=== PATIENT | female | born 1940 | race Caucasian/White ===

== ENCOUNTER 2021-02-22 10:12 | Inpatient (IN) ==
[2021-02-22] MEDS ORDERED: SODIUM CHLORIDE 0.9% 1000ML 1,000 ML IV ONE (11:18)
--- NOTE | 2021-02-22 11:24 | XRay Report ---
SINGLE VIEW CHEST CLINICAL HISTORY: Dyspnea. FINDINGS: An AP, portable, upright chest radiograph is obtained. No prior studies are available for c omparison at the time of dictation. The cardiomediastinal silhouette is unremarkable. Nonspecific in terstitial thickening is likely chronic. There is bibasilar scarring/atelectasis. No airspace consoli dation or large pleural effusion is identified. No pneumothorax is seen. The skeletal structures are osteopenic. There are healed left-sided rib fractures. IMPRESSION: No acute cardiopulmonary abnormality. ACT 112: Negative or not required by law. Electronically signed by: Srikanth Mistry M.D. 02/22/2021 11:23 AM
--- NOTE | 2021-02-22 11:37 | Emergency Department Note ---
Impression & Plan 2019 novel coronavirus-infected pneumonia (NCIP), SOB (shortness of breath), Weakness, Elevated troponin I level, Hypokalemia ED Provider Note NAME: DARY GODWIN AGE: 80 SEX: F : 1940 ARRIVES VIA: Walk-In INFORMANT: Patient, ED PROVIDER(S): Pramod Almaguer DO CHIEF COMPLAINT: Weakness HPI: The patient is a 80-year-old female who presented to the emergency department for an evaluation of generalized weakness. The patient states that she did having cough and generalized weakness over the course the last few weeks . She started having symptoms of COVID-19 infection on the of this month. She was then tested by her primary care physician on the that was positive for COVID-19. She states she called her doctor because of ongoing cough and weakness and was started on a Z-Vaibhav. She states her symptoms are not significantly improved. She denies having any chest pain. She denies having any lower extremity swelling. She has been trying [id number] medication without relief. She does note subjective fever as well. The patient is not vaccinated against COVID-19 ROS: See above HPI for pertinent positives & negatives. A total of 10 systems reviewed and were otherwise negative. PAST MEDICAL HISTORY: See Below PAST SURGICAL HISTORY: See Below FAMILY HISTORY: See Below SOCIAL HISTORY: See Below HOME MEDICATIONS: See Below ALLERGIES: See Below VITALS: See Below PHYSICAL EXAMINATION: GENERAL: Patient is awake alert in no acute distress patient is resting comfor tably and showing no signs of anxiety EYES: The conjunctivae are clear. The pupils are round and reactive. EARS, NOSE, MOUTH AND THROAT: The nose is without any evidence of any deformity. NECK: The neck is nontender and supple. RESPIRATORY: Diminished breath sounds are noted throughout. Faint crackles were noted in both lower lung mensah. There is no tachypnea or conversational dyspnea. CARDIOVASCULAR: Regular rate and rhythm noted there no murmurs rubs or gallops normal S1 normal S2. GASTROINTESTINAL: The abdomen is soft. Abdomen is nontender. MUSCULOSKELETAL/EXTREMITIES: There is no evidence of gross deformity full range of motion is noted in the hips and shoulders. SKIN: There is no obvious evidence of any rash. There are no petechiae, pallor or cyanosis noted. NEUROLOGIC: Patient is awake alert and oriented x3 strength is symmetric patellar reflexes are 2+ bilaterally MEDICAL DECISION MAKING: The patient is a 80-year-old female who presented to the emergency department for an evaluation of generalized weakness. The patient was diagnosed with COVID-19 recently. She continues to worsen with her symptoms especially weakness difficulty breathing. I discussed patient's laboratory and radiographic studies with her. She was found to have an elevation in her troponin. I discussed her case with the on-call [facility]. They have agreed to evaluate the patient in the emergency department but they did request a CT of the chest given the patient's elevated troponin and difficulty breathing. Triage Nursing notes reviewed. Prior medical records reviewed Vital Signs: reviewed and remarkable for elevated blood pressure Differential diagnosis: Infection, dehydration, metabolic abnormality, hypo/hyperglycemia, electrolyte disturbance, anemia, hypoxia, cardiac sources, intracerebral event, toxicologic, neurologic, as well as other pathologies. ER treatment provided: See below Diagnostics interpreted by me: ECG: EKG was obtained in the emergency department. My interpretation is normal sinus rhythm at 89 bpm. There is no ectopy. There was no acute ST segment abnormalities noted. Poor R wave progression was noted. This was compared to a tracing from May 082003. No significant changes were noted. Cardiac Monitoring: An order was placed for continuous cardiac monitoring. The monitor shows a rate of 90 bpm with sinus rhythm. Laboratory studies: As stated above and show below. Imaging studies: See below Consultation(s): I discussed this case with Jessica who is on-call for the [facility] group. They will evaluate the patient in the emergency department for further management and disposition. They did recommend a CT angiography prior to admission given the patient's elevated troponin and symptoms. Past Med/Surg History Medical History Anemia Cervicalgia Dental root implant present HTN (hypertension) Hypothyroidism Neutropenia Osteoporosis Temporomandibular jaw dysfunction Right Trigeminal neuralgia of right side of face V3 Surgical History H/O: hysterectomy History of sinus surgery Family History Father Valvular heart disease Mother AA (aortic aneurysm) Brother Aortic dissection Social History Smoking Status: Former smoker Tobacco Type: Cigarettes Number of Years Since Quit: 45; Hx Alcohol Use: No Hx Substance Use: No Communication Ability: Effective Visual Impairment: No Limitations Hearing Ability: Normal marital status: Current Living Situation: Alone 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/ [place] Feels Safe at Home: Yes Allergies Allergies Allergy/AdvReac Type Severity Reaction Status Date / Time No Known Allergies Allergy Unverified 02/22/21 14:27 Home Meds Home Medications Medication Instructions Recorded Confirmed losartan 50 mg tablet 50 mg PO DAILY 02/22/21 02/22/21 thyroid (pork) 90 mg tablet 90 mg PO DAILY 02/22/21 02/22/21 ([place] Thyroid) Results & Data (ED) Vital Signs Vital Signs - 24 hr 02/22/21 10:46 02/22/21 11:42 02/22/21 13:20 Temperature 37.0 C Temperature Source Temporal Artery Scan Pulse Rate 91 H Pulse Rate [Apical] 85 92 H Pulse Rhythm [Apical] Regular Regular Pulse Strength [Apical] Bounding Respiratory Rate 20 16 28 H Respiratory Effort / Characteristics Non-Labored Spontaneous Non-Labored Spontaneous Non-Labored Spontaneous Respiratory Depth Normal Normal Normal Respiratory Pattern Regular Blood Pressure 136/95 Blood Pressure [Right Arm] 149/98 H 163/99 H Blood Pressure Mean 108 Blood Pressure Mean [Right Arm] 115 120 Blood Pressure Position Sitting Pulse Oximetry 97 96 94 Oxygen Delivery Method Room Air Room Air Room Air Sepsis Recent Fever Within 48 Hours No Sepsis New/Unexplained Change in Mental Status No Sepsis Action Taken by Nursing No Action Required 02/22/21 14:00 Temperature Temperature Source Pulse Rate Pulse Rate [Apical] 90 Pulse Rhythm [Apical] Pulse Strength [Apical] Respiratory Rate 24 Respiratory Effort / Characteristics Non-Labored Spontaneous Respiratory Depth Normal Respiratory Pattern Blood Pressure Blood Pressure [Right Arm] 174/93 H Blood Pressure Mean Blood Pressure Mean [Right Arm] 120 Blood Pressure Position Pulse Oximetry 95 Oxygen Delivery Method Room Air Sepsis Recent Fever Within 48 Hours Sepsis New/Unexplained Change in Mental Status Sepsis Action Taken by Skilled Nursing Medications Current Medication List: was personally reviewed by me Laboratory Data Attestation: I reviewed the patient's lab results. Result diagrams: 02/22/21 11:33 02/22/21 11:33 Lab Results 02/22/21 02/22/21 02/22/21 Range/Units 11:33 11:33 11:33 WBC 2.53 L (4.8-10.8) K/uL RBC 5.21 (4.2-5.4) M/uL Hgb 15.6 (12.0-16.0) g/dL Hct 46.7 (37-47) % MCV 89.6 (80-100) fL MCH 29.9 (25-34) pg MCHC 33.4 (32-36) g/dL RDW Std Deviation 42.4 (36.4-46.3) fL RDW Coeff of Christopher 12.9 (11.5-14.5) % Plt Count 229 (130-400) K/uL MPV 10.1 (7.4-10.4) fL Immature Gran % (Auto) 0.4 % Neut % (Auto) 68.3 % Lymph % (Auto) 18.2 % Jack % (Auto) 12.3 % Eos % (Auto) 0.4 % Baso % (Auto) 0.4 % Neut # (Auto) 1.73 (1.4-6.5) K/uL Lymph # (Auto) 0.46 L (1.2-3.4) K/uL Jack # (Auto) 0.31 (0.11-0.59) K/uL Eos # (Auto) 0.01 (0-0.5) K/uL Baso # (Auto) 0.01 (0-0.2) K/uL Immature Gran # (Auto) 0.01 (0.00-0.02) K/uL ESR (0-30) mm/hr PT 10.6 (9.0-12.0) Seconds INR 1.0 (0.9-1.1) APTT 27.0 (21.0-31.0) Seconds PTT Ratio 1.0 D-Dimer 670 H* (0-500) ug/L FEU Sodium 139 (136-145) mmol/L Potassium 3.0 L (3.5-5.1) mmol/L Chloride 102 (98-107) mmol/L Carbon Dioxide 26 (21-32) mmol/L Anion Gap 11.0 (3-11) BUN 11 (7-18) mg/dl Creatinine 0.67 (0.6-1.2) mg/dl Est Cr Clr Drug Dosing Not Reportable Est GFR ( Amer) 96.9 ml/min Est GFR (Non-Af Amer) 83.6 ml/min BUN/Creatinine Ratio 16.7 (10-20) Glucose 100 H (70-99) mg/dl Calcium 8.7 (8.5-10.1) mg/dl Magnesium 2.2 (1.8-2.4) mg/dl Total Bilirubin 0.7 (0.2-1) mg/dl AST 33 (15-37) U/L ALT 34 (12-78) U/L Alkaline Phosphatase 78 (45-117) U/L Troponin I 0.060 H* (0-0.045) ng/ml C-Reactive Protein (0-0.29) mg/dl Total Protein 7.3 (6.4-8.2) gm/dl Albumin 3.3 L (3.4-5.0) gm/dl Globulin 4.0 (2.5-4.0) gm/dl Albumin/Globulin Ratio 0.8 L (0.9-2) Specimen Hemolysis SARS-CoV-2, RNA, NAAT (NEGATIVE) 02/22/21 02/22/21 02/22/21 Range/Units 11:33 11:33 11:33 WBC (4.8-10.8) K/uL RBC (4.2-5.4) M/uL Hgb (12.0-16.0) g/dL Hct (37-47) % MCV (80-100) fL MCH (25-34) pg MCHC (32-36) g/dL RDW Std Deviation (36.4-46.3) fL RDW Coeff of Christopher (11.5-14.5) % Plt Count (130-400) K/uL MPV (7.4-10.4) fL Immature Gran % (Auto) % Neut % (Auto) % Lymph % (Auto) % Jack % (Auto) % Eos % (Auto) % Baso % (Auto) % Neut # (Auto) (1.4-6.5) K/uL Lymph # (Auto) (1.2-3.4) K/uL Jack # (Auto) (0.11-0.59) K/uL Eos # (Auto) (0-0.5) K/uL Baso # (Auto) (0-0.2) K/uL Immature Gran # (Auto) (0.00-0.02) K/uL ESR 17 (0-30) mm/hr PT (9.0-12.0) Seconds INR (0.9-1.1) APTT (21.0-31.0) Seconds PTT Ratio D-Dimer (0-500) ug/L FEU Sodium (136-145) mmol/L Potassium (3.5-5.1) mmol/L Chloride (98-107) mmol/L Carbon Dioxide (21-32) mmol/L Anion Gap (3-11) BUN (7-18) mg/dl Creatinine (0.6-1.2) mg/dl Est Cr Clr Drug Dosing Est GFR ( Amer) ml/min Est GFR (Non-Af Amer) ml/min BUN/Creatinine Ratio (10-20) Glucose (70-99) mg/dl Calcium (8.5-10.1) mg/dl Magnesium (1.8-2.4) mg/dl Total Bilirubin (0.2-1) mg/dl AST (15-37) U/L ALT (12-78) U/L Alkaline Phosphatase (45-117) U/L Troponin I (0-0.045) ng/ml C-Reactive Protein 2.05 H (0-0.29) mg/dl Total Protein (6.4-8.2) gm/dl Albumin (3.4-5.0) gm/dl Globulin (2.5-4.0) gm/dl Albumin/Globulin Ratio (0.9-2) Specimen Hemolysis SARS-CoV-2, RNA, NAAT POSITIVE A* (NEGATIVE) Administered Medications Discontinued Medications Sodium Chloride (Nss 1000ml) 1,000 mls @ 999 mls/hr IV .Q1H1M ONE Stop: 02/22/21 12:18 Last Infusion: 02/22/21 13:00 Dose: 0 mls/hr Documented by: [id number] Admin: 02/22/21 11:32 Dose: 999 mls/hr Documented by: [id number] Dexamethasone 6 mg/ Syringe 1.5 mls @ 1 mls/min IV ONE ONE Stop: 02/22/21 14:58 Last Admin: 02/22/21 15:42 Dose: 1 mls/min Documented by: [id number] Ioversol (Optiray 320 125ml) 117 ml IV ONCE ONE Stop: 02/22/21 13:34 Last Admin: 02/22/21 13:33 Dose: 117 ml Documented by: [id number] Losartan Potassium (Losartan Potassium 50 Mg Tab) 50 mg PO NOW STA Stop: 02/22/21 14:47 Last Admin: 02/22/21 15:19 Dose: 50 mg Documented by: [id number] Potassium Chloride (Potassium Chloride 10 Meq Tabcr) 20 meq PO NOW STA Stop: 02/22/21 12:14 Last Admin: 02/22/21 12:22 Dose: 20 meq Documented by: [id number] Potassium Chloride (Potassium Chloride Crtab 20 Meq Tabcr) 40 meq PO ONE ONE Stop: 02/22/21 16:01 Last Admin: 02/22/21 15:20 Dose: 40 meq Documented by: [id number] Imaging Data Radiologist's Impression: Chest X-Ray 02/22/21 10:51 SINGLE VIEW CHEST CLINICAL HISTORY: Dyspnea. FINDINGS: An AP, portable, upright chest radiograph is obtained. No prior studies are available for comparison at the time of dictation. The cardiomediastinal silhouette is unremarkable. Nonspecific interstitial thickening is likely chronic. There is bibasilar scarring/atelectasis. No airspace consolidation or large pleural effusion is identified. No pneumothorax is seen. The skeletal structures are osteopenic. There are healed left-sided rib fractures. IMPRESSION: No acute cardiopulmonary abnormality. ACT 112: Negative or not required by law. Electronically signed by: Srikanth Mistry M.D. 02/22/2021 11:23 AM Chest CTA 02/22/21 12:48 CT ANGIOGRAM OF THE CHEST CLINICAL HISTORY: Dyspnea. COMPARISON STUDY: Chest x-ray dated 02/22/2021. TECHNIQUE: Following the IV administration of 117 cc of Optiray 320, CT angiogram of the chest was performed from the upper abdomen to the thoracic inlet utilizing the pulmonary embolus protocol. Images are reviewed in the axial, sagittal, and coronal planes. 3-D MIPS images are created and assessed. IV contrast was administered without complication. A dose lowering technique was utilized adhering to the principles of ALARA. CT DOSE: 224.93 mGy.cm FINDINGS: Thyroid: Atrophic versus surgically absent. Thoracic aorta: There is mild aneurysmal dilatation of the ascending thoracic aorta which measures up to 4.0 cm in diameter. The remainder of the thoracic aorta is normal in caliber, and the arch demonstrates 4-vessel variant anatomy. No dissection is seen. Pulmonary vasculature: The main pulmonary arteries appear dilated suggesting pulmonary artery hypertension. There are no filling defects identified in main, lobar, or segmental pulmonary branches to suggest pulmonary embolus. Heart: The heart is normal in size and without pericardial effusion. Lungs and pleural spaces: There is multifocal groundglass consolidation with a subpleural predominance. Trace pleural effusions are noted. The trachea and central airways appear clear. Foci of linear atelectasis are present at both lung bases. There are scattered calcified granulomas. Mediastinum: There is no mediastinal lymphadenopathy. Mel: Mildly enlarged hilar nodes measure up to 12 mm in short axis. Axillae: There is no axillary lymphadenopathy. Upper abdomen: There are least 2 hepatic cysts which measure up to 5 cm. Parenchymal calcifications of the partially imaged pancreas suggest chronic pancreatitis. Skeletal structures: The skeletal structures are osteopenic. Numerous hemangiomas are noted throughout the thoracic spine. No lytic or blastic bony lesions are seen. Arthritic change is seen in the shoulders. There are healed left-sided rib fractures. IMPRESSION: 1. There is no evidence of pulmonary embolus in the main, lobar, or segmental pulmonary arteries. 2. Multifocal groundglass consolidation is typical for pneumonia, likely viral. Clinical correlation will be required. 3. Cardiomegaly and trace pleural effusions. 4. There is mild aneurysmal dilatation of the ascending thoracic aorta which measures up to 4.0 cm in diameter. 5. Mildly enlarged hilar nodes are likely reactive. 6. Additional findings as above. ACT 112: Negative or not required by law. Electronically signed by: Srikanth Mistry M.D. 02/22/2021 1:56 PM Discharge Plan Visit Data Chief Complaint: Weakness Stated Complaint: COVID+ 02/11,WEAK ED Provider: Pramod Almaguer Discharge Problem: 2019 novel coronavirus-infected pneumonia (NCIP), SOB (shortness of breath), Weakness, Elevated troponin I level, Hypokalemia Patient Disposition: Being Evaluated by Hospitalist Forms Stand Alone Forms: My [facility] Prescriptions Prescriptions: No Action losartan 50 mg tablet 50 mg PO DAILY RF: 0 thyroid (pork) [[place] Thyroid] 90 mg tablet 90 mg PO DAILY RF: 0 Referrals Referrals: PCP,NO [Primary Care Provider] -
[2021-02-22 11:44] LABS: Basophils # (auto) 0.01 K/uL (0-0.2); Basophils % (auto) 0.4 %; Eosinophils # (auto) 0.01 K/uL (0-0.5); Eosinophils % (auto) 0.4 %; Hematocrit (blood only) 46.7 % (37-47); Hemoglobin 15.6 g/dL (12.0-16.0); Immature Granulocytes # (auto) 0.01 K/uL (0.00-0.02); Immature Granulocytes % (auto) 0.4 %; Lymphocytes # (auto) 0.46 K/uL (1.2-3.4); Lymphocytes % (auto) 18.2 %; Mean Corpuscular Hemoglobin 29.9 pg (25-34); Mean Corpuscular Hgb Conc 33.4 g/dL (32-36); Mean Corpuscular Volume 89.6 fL (80-100); Mean Platelet Volume 10.1 fL (7.4-10.4); Monocytes # (auto) 0.31 K/uL (0.11-0.59); Monocytes % (auto) 12.3 %; Neutrophils # (auto) 1.73 K/uL (1.4-6.5); Neutrophils % (auto) 68.3 %; Platelet Count 229 K/uL (130-400); RDW Coefficient of Variation 12.9 % (11.5-14.5); RDW Standard Deviation 42.4 fL (36.4-46.3); Red Blood Count 5.21 M/uL (4.2-5.4); White Blood Count 2.53 K/uL (4.8-10.8)
[2021-02-22 11:53] LABS: Prothrombin Time 10.6 Seconds (9.0-12.0)
[2021-02-22 12:09] LABS: Alanine Aminotransferase 34 U/L (12-78); Albumin Globulin Ratio 0.8 (0.9-2); Albumin Level 3.3 gm/dl (3.4-5.0); Alkaline Phosphatase 78 U/L (45-117); Aspartate Aminotransferase 33 U/L (15-37); BUN Creatinine Ratio 16.7 (10-20); Bilirubin,Total 0.7 mg/dl (0.2-1); Blood Urea Nitrogen 11 mg/dl (7-18); Calcium 8.7 mg/dl (8.5-10.1); Carbon Dioxide 26 mmol/L (21-32); Chloride 102 mmol/L (98-107); Est GFR (African American) 96.9 ml/min; Est GFR (Non-African American) 83.6 ml/min; Glucose 100 mg/dl (70-99); Magnesium 2.2 mg/dl (1.8-2.4); Sodium 139 mmol/L (136-145); Total Protein 7.3 gm/dl (6.4-8.2)
[2021-02-22] MEDS ORDERED: POTASSIUM CHLORIDE 10 MEQ TABCR PO STA (12:13)
[2021-02-22 12:30] LABS: D Dimer 670 ug/L FEU (0-500)
--- NOTE | 2021-02-22 12:42 | Electrocardiogram Report ---
Test Reason : Blood Pressure : / mmHG Vent. Rate : 089 BPM Atrial Rate : 089 BPM P-R Int : 164 ms QRS Dur : 080 ms QT Int : 356 ms P-R-T Axes : 041 -50 024 degrees QTc Int : 433 ms Poor data quality, interpretation may be adversely affected Normal sinus rhythm Possible Left atrial enlargement Left axis deviation possible Inferior infarct (cited on or before 16-MAY-2003) Poor R wave progression, consider anterior CA vs. lead placement vs. LVH Abnormal ECG When compared with ECG of 16-MAY-2003 14:49, QRS axis Shifted left Confirmed by Leno Lebron ([id number]) on 02/22/2021 12:41:34 PM Referred By: Confirmed By:Reggie Lebron
[2021-02-22] MEDS ORDERED: OPTIRAY 320 125ml IV ONE (13:33)
--- NOTE | 2021-02-22 13:57 | CT Scan Report ---
CT ANGIOGRAM OF THE CHEST CLINICAL HISTORY: Dyspnea. COMPARISON STUDY: Chest x-ray dated 02/22/2021. TECHNIQUE: Following the IV administration of 117 cc of Optiray 320, CT angiogram of the chest was pe rformed from the upper abdomen to the thoracic inlet utilizing the pulmonary embolus protocol. Images are reviewed in the axial, sagittal, and coronal planes. 3-D MIPS images are created and assessed. I V contrast was administered without complication. A dose lowering technique was utilized adhering to the principles of ALARA. CT DOSE: 224.93 mGy.cm FINDINGS: Thyroid: Atrophic versus surgically absent. Thoracic aorta: There is mild aneurysmal dilatation of the ascending thoracic aorta which measures up to 4.0 cm in diameter. The remainder of the thoracic aorta is normal in caliber, and the arch demons trates 4-vessel variant anatomy. No dissection is seen. Pulmonary vasculature: The main pulmonary arteries appear dilated suggesting pulmonary artery hyperte nsion. There are no filling defects identified in main, lobar, or segmental pulmonary branches to sug gest pulmonary embolus. Heart: The heart is normal in size and without pericardial effusion. Lungs and pleural spaces: There is multifocal groundglass consolidation with a subpleural predominanc e. Trace pleural effusions are noted. The trachea and central airways appear clear. Foci of linear at electasis are present at both lung bases. There are scattered calcified granulomas. Mediastinum: There is no mediastinal lymphadenopathy. Mel: Mildly enlarged hilar nodes measure up to 12 mm in short axis. Axillae: There is no axillary lymphadenopathy. Upper abdomen: There are least 2 hepatic cysts which measure up to 5 cm. Parenchymal calcifications o f the partially imaged pancreas suggest chronic pancreatitis. Skeletal structures: The skeletal structures are osteopenic. Numerous hemangiomas are noted throughou t the thoracic spine. No lytic or blastic bony lesions are seen. Arthritic change is seen in the shou lders. There are healed left-sided rib fractures. IMPRESSION: 1. There is no evidence of pulmonary embolus in the main, lobar, or segmental pulmonary arteries. 2. Multifocal groundglass consolidation is typical for pneumonia, likely viral. Clinical correlation will be required. 3. Cardiomegaly and trace pleural effusions. 4. There is mild aneurysmal dilatation of the ascending thoracic aorta which measures up to 4.0 cm in diameter. 5. Mildly enlarged hilar nodes are likely reactive. 6. Additional findings as above. ACT 112: Negative or not required by law. Electronically signed by: Srikanth Mistry M.D. 02/22/2021 1:56 PM
[2021-02-22] MEDS ORDERED: LOSARTAN POTASSIUM 50 MG TAB PO STA (14:46)
[2021-02-22] MEDS ORDERED: dexAMETHasone 6 MG in SYRINGE 0 ML IV ONE (14:57)
--- NOTE | 2021-02-22 15:41 | History & Physical Report ---
Date of Service February 22, 2021 Assessment & Plan (1) Pneumonia due to COVID-19 virus: Plan: This is a 80-year-old female who has significant past medical history of hypothyroidism hypertension who presents to ED secondary to ill feeling x10 days. CTA Chest:Multifocal groundglass consolidation is typical for pneumonia, likely viral. Clinical correlation will be required Admit to med tele Pt is not hypoxic, currently does not meet criteria for treatment and she is out of window for resmdesivir she does ask about ivermectin and discussed with her that this is not an approved tx for covid-19 obtain ESR/CRP monitor on tele supportive measures (2) Hypokalemia: Plan: K 3.0, replace repeat K as specimen shows hemolysis (3) Elevated troponin: (4) Aortic aneurysm, thoracic: Plan: trop 0.060, w/o chest pain or sob ecg reviewed cycle trop repeat ecg +FH of mother of aortic aneurysm and brother 1 month ago from aortic dissection Chest CT: mild aneurysmal dilatation of the ascending thoracic aorta which measures up to 4.0 cm in diameter. Pt will need outpt cardiology follow up for aneursym if troponin elevates further will consult cards (5) HTN (hypertension): Plan: BP elevated in ED due to not taking a.m. med give losartan x 1 now monitor (6) Hypothyroidism: Plan: continue armour thyroid DVT ppx: Lovenox SQ q12h Dispo: tele PCP: Crystal Kearns FULL CODE Pt was seen and examined in collaboration with Dr. Junior, please see addendum History of Present Illness Chief Complaint: Ill feeling x 10 days. Primary Care Provider: Crystal Kearns This is a 80-year-old female who has significant past medical history of hypothyroidism hypertension who presents to ED secondary to ill feeling x10 days. She was initially diagnosed with COVID-19 on 02/12 and her symptoms started on 02/11. She is unvaccinated and is also not vaccinated for influenza. She complains of ill feeling, malaise, chills, sweats, decreased appetite and dry cough. She has no known sick contacts. She lives at home alone. She denies documented fever, lightheadedness, dizziness, chest pain, shortness of breath, DAS, orthopnea or PND, nausea, vomiting, abdominal pain, dysuria, increased urgency or frequency with urination, melena or hematochezia. She did have 1 episode of diarrhea. She saw PCP yesterday who started her on azithromycin. She did take 500 mg of azithromycin x1 yesterday. She has no p rior history of COVID-19. She does admit to family history of valvular heart disease in father, aortic aneurysm in mother and brother who 1 month ago of aortic dissection. In ED patient remained hemodynamically stable although mildly hypertensive. She was saturating on room air. She did have mild elevation of D-dimer at 670. Her potassium was mildly low at 3.0 and her troponin was mildly elevated at 0.060. She underwent chest CTA which showed multifocal groundglass consolidation typical for viral pneumonia. There was no evidence of PE. Mild aneurysmal dilatation of the ascending thoracic aorta measuring up to 4.0 cm in diameter was incidentally noted as well. Allergies Allergy/AdvReac Type Severity Reaction Status Date / Time No Known Allergies Allergy Unverified 02/22/21 14:27 Home Medications Medication Instructions Recorded Confirmed Type losartan 50 mg tablet 50 mg PO DAILY 02/22/21 02/22/21 History thyroid (pork) 90 mg tablet 90 mg PO DAILY 02/22/21 02/22/21 History ([place] Thyroid) Past Med/Surg History Medical History Anemia Cervicalgia Dental root implant present HTN (hypertension) Hypothyroidism Neutropenia Osteoporosis Temporomandibular jaw dysfunction Right Trigeminal neuralgia of right side of face V3 Surgical History H/O: hysterectomy History of sinus surgery Family History Father Valvular heart disease Mother AA (aortic aneurysm) Brother Aortic dissection Social History Smoking Status: Former smoker Tobacco Type: Cigarettes Number of Years Since Quit: 45; Hx Alcohol Use: No Hx Substance Use: No Communication Ability: Effective Visual Impairment: No Limitations Hearing Ability: Normal marital status: Current Living Situation: Alone 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 Normal insp/exp effort, no accessory muscle use Cardiovascular: RRR, no murmur, no edema Vessels: no JVD or carotid bruit Chest: normal inspection of chest Abdomen: normal bowel sounds, soft, nontender, no hepatosplenomegaly Musculoskeletal: no cyanosis or clubbing, extremities motor strength 5/5 Skin: no rashes, warm and dry normal turgor Neurologic: PERRL, EOMI, accommodation nl, no face palsy, no dysarthria CN's II-XI intact bilaterally and moves all extremities Psychiatric: A+Ox3, euthymic affect Lymphatic: no cervical or axillary lymphadenopathy : deferred Results & Data Results & Data ([facility]) Vital Signs (Past 12 Hours) Vital Signs Temp Pulse Pulse Resp BP BP Pulse Ox 02/22/21 14:00 90 24 174/93 H 95 02/22/21 13:20 92 H 28 H 163/99 H 94 02/22/21 11:42 85 16 149/98 H 96 02/22/21 10:46 37.0 C 91 H 20 136/95 97 Diagnostic Findings Chest X-Ray 02/22/21 10:51 SINGLE VIEW CHEST CLINICAL HISTORY: Dyspnea. FINDINGS: An AP, portable, upright chest radiograph is obtained. No prior studies are available for comparison at the time of dictation. The cardiomediastinal silhouette is unremarkable. Nonspecific interstitial thickening is likely chronic. There is bibasilar scarring/atelectasis. No airspace consolidation or large pleural effusion is identified. No pneumothorax is seen. The skeletal structures are osteopenic. There are healed left-sided rib fractures. IMPRESSION: No acute cardiopulmonary abnormality. ACT 112: Negative or not required by law. Electronically signed by: Srikanth Mistry M.D. 02/22/2021 11:23 AM Chest CTA 02/22/21 12:48 CT ANGIOGRAM OF THE CHEST CLINICAL HISTORY: Dyspnea. COMPARISON STUDY: Chest x-ray dated 02/22/2021. TECHNIQUE: Following the IV administration of 117 cc of Optiray 320, CT angiogram of the chest was performed from the upper abdomen to the thoracic inlet utilizing the pulmonary embolus protocol. Images are reviewed in the axial, sagittal, and coronal planes. 3-D MIPS images are created and assessed. IV contrast was administered without complication. A dose lowering technique was utilized adhering to the principles of ALARA. CT DOSE: 224.93 mGy.cm FINDINGS: Thyroid: Atrophic versus surgically absent. Thoracic aorta: There is mild aneurysmal dilatation of the ascending thoracic aorta which measures up to 4.0 cm in diameter. The remainder of the thoracic aorta is normal in caliber, and the arch demonstrates 4-vessel variant anatomy. No dissection is seen. Pulmonary vasculature: The main pulmonary arteries appear dilated suggesting pulmonary artery hypertension. There are no filling defects identified in main, lobar, or segmental pulmonary branches to suggest pulmonary embolus. Heart: The heart is normal in size and without pericardial effusion. Lungs and pleural spaces: There is multifocal groundglass consolidation with a subpleural predominance. Trace pleural effusions are noted. The trachea and central airways appear clear. Foci of linear atelectasis are present at both lung bases. There are scattered calcified granulomas. Mediastinum: There is no mediastinal lymphadenopathy. Mel: Mildly enlarged hilar nodes measure up to 12 mm in short axis. Axillae: There is no axillary lymphadenopathy. Upper abdomen: There are least 2 hepatic cysts which measure up to 5 cm. Parenchymal calcifications of the partially imaged pancreas suggest chronic pancreatitis. Skeletal structures: The skeletal structures are osteopenic. Numerous hemangiomas are noted throughout the thoracic spine. No lytic or blastic bony lesions are seen. Arthritic change is seen in the shoulders. There are healed left-sided rib fractures. IMPRESSION: 1. There is no evidence of pulmonary embolus in the main, lobar, or segmental pulmonary arteries. 2. Multifocal groundglass consolidation is typical for pneumonia, likely viral. Clinical correlation will be required. 3. Cardiomegaly and trace pleural effusions. 4. There is mild aneurysmal dilatation of the ascending thoracic aorta which measures up to 4.0 cm in diameter. 5. Mildly enlarged hilar nodes are likely reactive. 6. Additional findings as above. ACT 112: Negative or not required by law. Electronically signed by: Srikanth Mistry M.D. 02/22/2021 1:56 PM Medications Administered Medication List Potassium Chloride (Potassium Chloride Crtab 20 Meq Tabcr) 40 meq PO ONE ONE Stop: 02/22/21 16:01 Last Admin: 02/22/21 15:20 Dose: 40 meq Documented by: [id number] Discontinued Medications Sodium Chloride (Nss 1000ml) 1,000 mls @ 999 mls/hr IV .Q1H1M ONE Stop: 02/22/21 12:18 Last Infusion: 02/22/21 13:00 Dose: 0 mls/hr Documented by: [id number] Admin: 02/22/21 11:32 Dose: 999 mls/hr Documented by: [id number] Dexamethasone 6 mg/ Syringe 1.5 mls @ 1 mls/min IV ONE ONE Stop: 02/22/21 14:58 Last Admin: 02/22/21 15:42 Dose: 1 mls/min Documented by: [id number] Ioversol (Optiray 320 125ml) 117 ml IV ONCE ONE Stop: 02/22/21 13:34 Last Admin: 02/22/21 13:33 Dose: 117 ml Documented by: [id number] Losartan Potassium (Losartan Potassium 50 Mg Tab) 50 mg PO NOW STA Stop: 02/22/21 14:47 Last Admin: 02/22/21 15:19 Dose: 50 mg Documented by: [id number] Potassium Chloride (Potassium Chloride 10 Meq Tabcr) 20 meq PO NOW STA Stop: 02/22/21 12:14 Last Admin: 02/22/21 12:22 Dose: 20 meq Documented by: [id number] ECG Rate (beats per minute): 89 Rhythm: normal sinus Additional Comments: poor r wave progression COVID-19 Results Results COVID-19 Adm Lab Results: RBC 5.21 M/uL (4.2-5.4) 02/22/21 WBC 2.53 K/uL (4.8-10.8) L 02/22/21 Hgb 15.6 g/dL (12.0-16.0) 02/22/21 Hct 46.7 % (37-47) 02/22/21 Plt Count 229 K/uL (130-400) 02/22/21 Neutrophils (%) (Auto) 68.3 % 02/22/21 Lymphocytes (%) (Auto) 18.2 % 02/22/21 Monocytes # (Auto) 0.31 K/uL (0.11-0.59) 02/22/21 Eosinophils # (Auto) 0.01 K/uL (0-0.5) 02/22/21 Immature Granulocyte % (Auto) 0.4 % 02/22/21 Neutrophils # (Auto) 1.73 K/uL (1.4-6.5) 02/22/21 Lymphocytes # (Auto) 0.46 K/uL (1.2-3.4) L 02/22/21 Monocytes # (Auto) 0.31 K/uL (0.11-0.59) 02/22/21 Eosinophils # (Auto) 0.01 K/uL (0-0.5) 02/22/21 Basophils # (Auto) 0.01 K/uL (0-0.2) 02/22/21 Immature Granulocyte # (Auto) 0.01 K/uL (0.00-0.02) 02/22/21 Na 139 mmol/L (136-145) 02/22/21 K 3.8 mmol/L (3.5-5.1) 02/22/21 Cl 102 mmol/L (98-107) 02/22/21 CO2 26 mmol/L (21-32) 02/22/21 Anion Gap 11.0 (3-11) 02/22/21 BUN 11 mg/dl (7-18) 02/22/21 Creatinine 0.67 mg/dl (0.6-1.2) 02/22/21 BUN/Creatinine Ratio 16.7 (10-20) 02/22/21 Glucose Level 100 mg/dl (70-99) H 02/22/21 Ca 8.7 mg/dl (8.5-10.1) 02/22/21 Total Bilirubin 0.7 mg/dl (0.2-1) 02/22/21 AST/SGOT 33 U/L (15-37) 02/22/21 ALT/SGPT 34 U/L (12-78) 02/22/21 Alkaline Phosphatase 78 U/L (45-117) 02/22/21 Total Protein 7.3 gm/dl (6.4-8.2) 02/22/21 Albumin 3.3 gm/dl (3.4-5.0) L 02/22/21 Globulin 4.0 gm/dl (2.5-4.0) 02/22/21 Albumin/Globulin Ratio 0.8 (0.9-2) L 02/22/21 Troponin I 0.076 ng/ml (0-0.045) H* 02/22/21 CRP 2.05 mg/dl (0-0.29) H 02/22/21 D-Dimer 670 ug/L FEU (0-500) H* 02/22/21 PTT 27.0 Seconds (21.0-31.0) 02/22/21 INR 1.0 (0.9-1.1) 02/22/21 SARS-CoV-2, RNA, NAAT POSITIVE (NEGATIVE) A* 02/22/21 Chest X-Ray 02/22/21 Code Status & VTE Plan Code Status FUll Code VTE Prophylaxis Plan VTE Prophylaxis will be ordered: Yes Supervising Physician Co-Signing Physician Notes History and physical exam performed by me as detailed by Jessica Javier PA-C Notable for feeling unwell for the past 10 days with weakness, myalgias, cough, anorexia Exam grossly unremarkable except for BP fo 174/93 Lab notable for elevated DDimer, WBC of 2, trop 0.06 CT PE negative for PE but showed multifocal GGO as well as mild aneurysmal dil of asc thoracic aorta about 4cm COVID 19 pnemonia Hypokalemia Elevated trop Monitor No need for COVID specific therapy at this time as patient is not currently hypoxic IS/Flutter Replete K and monitor Tele Trend trop. Mildly elevated trop could also be from elevated BP. Denied chest pain/SOB at this time Agree with other plans as detailed by Jessica Javier PA-C
[2021-02-22] MEDS ORDERED: POTASSIUM CHLORIDE CRTAB 20 MEQ TABCR PO ONE (16:00)
[2021-02-22 17:30] LABS: Potassium 3.8 mmol/L (3.5-5.1)
[2021-02-22 17:37] LABS: Troponin I 0.076 ng/ml (0-0.045)
[2021-02-22] MEDS ORDERED: MAGNESIUM HYDROXIDE SUSP 30 ML UDC PO PRN (17:59)
[2021-02-22] MEDS ORDERED: POLYETHYLENE (MIRALAX) 17 GM PACK PO PRN (17:59)
[2021-02-22] MEDS ORDERED: NITROGLYCERIN SL 0.4 MG/TAB TAB SL PRN (17:59)
[2021-02-22] MEDS ORDERED: ONDANSETRON INJ 2 MG/ML 2 ML VIAL IV PRN (17:59)
[2021-02-22] MEDS ORDERED: ALUMINUM/MAGNESIUM SUSP 30 ML UDC PO PRN (17:59)
[2021-02-22] MEDS ORDERED: ACETAMINOPHEN 325 MG TAB PO PRN (17:59)
[2021-02-22] MEDS: ENOXAPARIN INJ 40 MG/0.4 ML SYR SQ SCH (19:52)
[2021-02-23 07:42] LABS: Hematocrit (blood only) 39.9 % (37-47); Hemoglobin 13.4 g/dL (12.0-16.0); Mean Corpuscular Hemoglobin 29.8 pg (25-34); Mean Corpuscular Hgb Conc 33.6 g/dL (32-36); Mean Corpuscular Volume 88.9 fL (80-100); Mean Platelet Volume 10.6 fL (7.4-10.4); Platelet Count 228 K/uL (130-400); RDW Standard Deviation 42.4 fL (36.4-46.3); Red Blood Count 4.49 M/uL (4.2-5.4); White Blood Count 1.54 K/uL (4.8-10.8)
[2021-02-23 08:03] LABS: BUN Creatinine Ratio 27.7 (10-20); Calcium 8.2 mg/dl (8.5-10.1); Creatinine Clr Calc Pharmacy 76.7 ml/min; Est GFR (African American) 110.5 ml/min; Est GFR (Non-African American) 95.3 ml/min; Potassium 3.7 mmol/L (3.5-5.1)
[2021-02-23 08:04] LABS: Monocytes # (auto) 0.32 K/uL (0.11-0.59); Monocytes % (auto) 20.8 %; Neutrophils # (auto) 0.82 K/uL (1.4-6.5); Neutrophils % (auto) 53.2 %
[2021-02-23] MEDS: LOSARTAN POTASSIUM 50 MG TAB PO SCH (09:19)
[2021-02-23] MEDS: ARMOUR THYROID 30 MG TAB PO SCH (09:19)
[2021-02-23] MEDS: ENOXAPARIN INJ 40 MG/0.4 ML SYR SQ SCH (09:20)
[2021-02-23] MEDS: dexAMETHasone 6 MG in SYRINGE 0 ML IV SCH (09:54)
--- NOTE | 2021-02-23 14:58 | Hospitalist Progress Note ---
Date of Service February 23, 2021 Assessment & Plan (1) Pneumonia due to COVID-19 virus: Plan: 80-year-old female who has significant past medical history of hypothyroidism hypertension who presents to ED secondary to ill feeling x10 days. CTA Chest:Multifocal groundglass consolidation is typical for pneumonia, likely viral. No PE Oxygen sats dropped to 89% yesterday evening. Currently at 90-92 Start dexamethasone Educated on self proning Incentive spirometry and flutter Will need 2 step prior to discharge Leukopenia. Monitor (2) Hypokalemia: Plan: K 3.0 on admission Repleted. K is 3.7 today (3) Elevated troponin: (4) Aortic aneurysm, thoracic: Plan: trop 0.060->0.07-->0.05 No chest pain or shortness of breath +FH of mother of aortic aneurysm and brother 1 month ago from aortic dissection Chest CT: mild aneurysmal dilatation of the ascending thoracic aorta which measures up to 4.0 cm in diameter. Pt will need outpt cardiology follow up for aneursym/surveillance (5) HTN (hypertension): Plan: Stable Continue losartan (6) Hypothyroidism: Plan: Continue armour thyroid DVT ppx: Lovenox SQ Dispo: tele PCP: Crystal Kearns FULL CODE Admission and Anticipated Discharge Date Admission Date: February 22, 2021 Subjective Patient seen and examined Reports weakness is mildly improved Still has cough, poor appetite Denied chest pain, SOB at rest, DAS, palpitation Denied nausea, vomiting, abd pain Denied dysuria, freq, urgency Physical Exam Constitutional: + well hydrated; no acute distress Eyes: PERRL, conjunctivae normal, anicteric sclerae ENMT: external ear and nose normal, oropharynx normal Respiratory: Not in resp distress, currently on room air Diminished breath sounds Cardiovascular: Rate/Rhythm: regular rate and regular rhythm S1 S2 Gastrointestinal (Abdomen): normal bowel sounds, soft, nontender, no hepatosplenomegaly Musculoskeletal: No pedal edema Neurologic: PERRL, EOMI, accommodation nl, no face palsy, no dysarthria Results & Data Results & Data ([facility]) Vital Signs (Past 12 Hours) Vital Signs Temp Pulse Resp BP Pulse Ox 02/23/21 11:50 37 C 80 16 130/83 92 02/23/21 07:33 37 C 82 16 145/95 H 93 Laboratory Results Abnormal lab results 02/22/21 02/23/21 02/23/21 Range/Units 23:30 06:31 06:31 WBC 1.54 L (4.8-10.8) K/uL MPV 10.6 H (7.4-10.4) fL Neut # (Auto) 0.82 L* (1.4-6.5) K/uL Lymph # (Auto) 0.40 L (1.2-3.4) K/uL Chloride 112 H (98-107) mmol/L Creatinine 0.45 L (0.6-1.2) mg/dl BUN/Creatinine Ratio 27.7 H (10-20) Calcium 8.2 L (8.5-10.1) mg/dl Troponin I 0.054 H* (0-0.045) ng/ml
[2021-02-24 06:42] LABS: Hematocrit (blood only) 39.5 % (37-47); Hemoglobin 13.2 g/dL (12.0-16.0); Mean Corpuscular Hemoglobin 29.7 pg (25-34); Mean Corpuscular Hgb Conc 33.4 g/dL (32-36); Mean Platelet Volume 10.3 fL (7.4-10.4); Platelet Count 247 K/uL (130-400); RDW Standard Deviation 42.6 fL (36.4-46.3); Red Blood Count 4.44 M/uL (4.2-5.4); White Blood Count 3.54 K/uL (4.8-10.8)
[2021-02-24 07:16] LABS: BUN Creatinine Ratio 28.2 (10-20); Calcium 8.1 mg/dl (8.5-10.1); Creatinine Clr Calc Pharmacy 58.6 ml/min; Est GFR (Non-African American) 87.2 ml/min; Potassium 3.5 mmol/L (3.5-5.1)
[2021-02-24] MEDS: ARMOUR THYROID 30 MG TAB PO SCH (07:20)
[2021-02-24] MEDS ORDERED: ENOXAPARIN INJ 40 MG/0.4 ML SYR SQ SCH (09:00)
[2021-02-24] MEDS: LOSARTAN POTASSIUM 50 MG TAB PO SCH (09:03)
[2021-02-24] MEDS: dexAMETHasone 6 MG in SYRINGE 0 ML IV SCH (09:03)
--- NOTE | 2021-02-24 13:01 | Discharge Summary ---
Date of Service February 24, 2021 Admission HPI Per Admitting Provider This is a 80-year-old female who has significant past medical history of hypothyroidism hypertension who presents to ED secondary to ill feeling x10 days. She was initially diagnosed with COVID-19 on 02/12 and her symptoms started on 02/11. She is unvaccinated and is also not vaccinated for influenza. She complains of ill feeling, malaise, chills, sweats, decreased appetite and dry cough. She has no known sick contacts. She lives at home alone. She denies documented fever, lightheadedness, dizziness, chest pain, shortness of breath, DAS, orthopnea or PND, nausea, vomiting, abdominal pain, dysuria, incre ased urgency or frequency with urination, melena or hematochezia. She did have 1 episode of diarrhea. She saw PCP yesterday who started her on azithromycin. She did take 500 mg of azithromycin x1 yesterday. She has no prior history of COVID-19. She does admit to family history of valvular heart disease in father, aortic aneurysm in mother and brother who 1 month ago of aortic dissection. In ED patient remained hemodynamically stable although mildly hypertensive. She was saturating on room air. She did have mild elevation of D-dimer at 670. Her potassium was mildly low at 3.0 and her troponin was mildly elevated at 0.060. She underwent chest CTA which showed multifocal groundglass consolidation typical for viral pneumonia. There was no evidence of PE. Mild aneurysmal dilatation of the ascending thoracic aorta measuring up to 4.0 cm in diameter was incidentally noted as well. Admission Exam Per Admitting Provider Constitutional: WD/WN, vitals as above, NAD, appears acutely ill, sitting up in bed, pleasant, conversing easily Head: Normocephalic, Atraumatic Eyes: PERRL, conjunctivae normal, anicteric sclerae ENMT: external ear and nose normal, oropharynx normal Neck: trachea midline, no thyromegaly normal visual inspection Respiratory: normal respiratory effort, lungs clear to auscultation, no wheeze, rales, rhonchi. Normal insp/exp effort, no accessory muscle use Cardiovascular: RRR, no murmur, no edema Vessels: no JVD or carotid bruit Chest: normal inspection of chest Abdomen: normal bowel sounds, soft, nontender, no hepatosplenomegaly Musculoskeletal: no cyanosis or clubbing, extremities motor strength 5/5 Skin: no rashes, warm and dry normal turgor Neurologic: PERRL, EOMI, accommodation nl, no face palsy, no dysarthria CN's II-XI intact bilaterally and moves all extremities Psychiatric: A+Ox3, euthymic affect Lymphatic: no cervical or axillary lymphadenopathy : deferred Principal Diagnosis COVID 19 pneumonia Discharge Exam Constitutional + well hydrated; no acute distress Eyes PERRL, conjunctivae normal, anicteric sclerae ENMT external ear and nose normal, oropharynx normal Respiratory normal respiratory effort; no respiratory distress Diminished breath sounds Cardiovascular Rate/Rhythm: regular rate and regular rhythm S1 S2 Gastrointestinal (Abdomen) normal bowel sounds, soft, nontender, no hepatosplenomegaly Musculoskeletal no cyanosis or clubbing, extremities motor strength 5/5 Neurologic PERRL, EOMI, accommodation nl, no face palsy, no dysarthria Psychiatric A+Ox3, euthymic affect Discharge Data Allergies Allergy/AdvReac Type Severity Reaction Status Date / Time No Known Allergies Allergy Unverified 02/22/21 14:27 Consultations 02/22/21 12:48 ED Decision to Admit Stat Ordered Studies 02/22/21 12:48 CT angio chest PE protocol Stat Thyroid: Atrophic versus surgically absent. Thoracic aorta: There is mild aneurysmal dilatation of the ascending thoracic aorta which measures up to 4.0 cm in diameter. The remainder of the thoracic aorta is normal in caliber, and the arch demonstrates 4-vessel variant anatomy. No dissection is seen. Pulmonary vasculature: The main pulmonary arteries appear dilated suggesting pulmonary artery hypertension. There are no filling defects identified in main, lobar, or segmental pulmonary branches to suggest pulmonary embolus. Heart: The heart is normal in size and without pericardial effusion. Lungs and pleural spaces: There is multifocal groundglass consolidation with a subpleural predominance. Trace pleural effusions are noted. The trachea and central airways appear clear. Foci of linear atelectasis are present at both lung bases. There are scattered calcified granulomas. Mediastinum: There is no mediastinal lymphadenopathy. Mel: Mildly enlarged hilar nodes measure up to 12 mm in short axis. Axillae: There is no axillary lymphadenopathy. Upper abdomen: There are least 2 hepatic cysts which measure up to 5 cm. Parenchymal calcifications of the partially imaged pancreas suggest chronic pancreatitis. Skeletal structures: The skeletal structures are osteopenic. Numerous hemangiomas are noted throughout the thoracic spine. No lytic or blastic bony lesions are seen. Arthritic change is seen in the shoulders. There are healed left-sided rib fractures. IMPRESSION: 1. There is no evidence of pulmonary embolus in the main, lobar, or segmental pulmonary arteries. 2. Multifocal groundglass consolidation is typical for pneumonia, likely viral. Clinical correlation will be required. 3. Cardiomegaly and trace pleural effusions. 4. There is mild aneurysmal dilatation of the ascending thoracic aorta which measures up to 4.0 cm in diameter. 5. Mildly enlarged hilar nodes are likely reactive. 6. Additional findings as above. Hospital Course (1) Pneumonia due to COVID-19 virus: 80-year-old female who has significant past medical history of hypothyroidism hypertension who presents to ED secondary to ill feeling x10 days. CTA Chest:Multifocal groundglass consolidation is typical for pneumonia, likely viral. No PE Oxygen sats dropped to 89% briefly and was started on dexamethasone Has been on room air Patient reports significant improvement in symptoms today 2 Step did not indicate any oxygen requirement at rest or with activity Provided education on COVID 19 pneumonia (2) Hypokalemia: K 3.0 on admission Repleted (3) Elevated troponin: (4) Aortic aneurysm, thoracic: Mildly elevated trop 0.060->0.07-->0.05 No chest pain or shortness of breath +FH of mother of aortic aneurysm and brother 1 month ago from aortic dissection Chest CT: mild aneurysmal dilatation of the ascending thoracic aorta which measures up to 4.0 cm in diameter. Pt will need outpt follow up for aneursym/surveillance (5) HTN (hypertension): Stable Continue losartan (6) Hypothyroidism: Continue armour thyroid Total Time Total Time Spent Total Time Spent (In Minutes): 40 Total Time Includes: Examination of the Patient, Discharge Planning and Medication Reconciliation Discharge Plan Discharge Items Patient Disposition: Home - Self-Care Reason For Visit: Feeling unwell, cough Discharge Diagnosis: COVID 19 pneumonia Activity: Resume your previous activity Non-emergency contact: Primary Care Provider Call non-emergency contact if: you have any medication questions Follow-up/Referrals: PCP,NO [Primary Care Provider] - Diet: Heart Healthy Addtl Attending Provider Instructions: Mrs Ramirez You came to the hospital complaining of feeling unwell and cough. You were evaluated and found to have COVID 19 pneumonia You were treated and your symptoms improved. Assessment today does not show any need for oxygen at this time. Please adhere to home isolation instructions as we discussed. Please follow up with your Primary Doctor about getting vaccinations as we discussed. It was a pleasure taking care of you. Addtl Optoelectronic Technician Provider Instructions: Home Isolation COVID-19 Instructions The following information about Home Isolation is from the CDC Website: https://www.cdc.gov/coronavirus/2019-ncov/hcp/hmdavwoe-dabkqha-qwmjlz.html Stay home except to get medical care People who are mildly ill with COVID-19 are able to isolate at home during their illness. You should restrict activities outside your home, except for getting medical care. Do not go to work, school, or public areas. Avoid using public transportation, ride-sharing, or taxis. Separate yourself from other people and animals in your home People: As much as possible, you should stay in a specific room and away from other people in your home. Also, you should use a separate bathroom, if available. Animals: You should restrict contact with pets and other animals while you are sick with COVID-19, just like you would around other people. Although there have not been reports of pets or other animals becoming sick with COVID-19, it is still recommended that people sick with COVID-19 limit contact with animals until more information is known about the virus. When possible, have another member of your household care for your animals while you are sick. If you are sick with COVID-19, avoid contact with your pet, including petting, snuggling, b eing kissed or licked, and sharing food. If you must care for your pet or be around animals while you are sick, wash your hands before and after you interact with pets and wear a face mask. Call ahead before visiting your doctor If you have a medical appointment, call the healthcare provider and tell them that you have or may have COVID-19. This will help the healthcare providers office take steps to keep other people from getting infected or exposed. Wear a face mask You should wear a face mask when you are around other people (e.g., sharing a room or vehicle) or pets and before you enter a healthcare providers office. If you are not able to wear a face mask (for example, because it causes trouble breathing), then people who live with you should not stay in the same room with you, or they should wear a face mask if they enter your room. Cover your coughs and sneezes Cover your mouth and nose with a tissue when you cough or sneeze. Throw used tissues in a lined trash can. Immediately wash your hands with soap and water for at least 20 seconds or, if soap and water are not available, clean your hands with an alcohol-based hand drywall installer that contains at least 60% alcohol. Clean your hands often Wash your hands often with soap and water for at least 20 seconds, especially af ter blowing your nose, coughing, or sneezing; going to the bathroom; and before eating or preparing food. If soap and water are not readily available, use an alcohol-based hand drywall installer with at least 60% alcohol, covering all surfaces of your hands and rubbing them together until they feel dry. Soap and water are the best option if hands are visibly dirty. Avoid touching your eyes, nose, and mouth with unwashed hands. Avoid sharing personal household items You should not share dishes, drinking glasses, cups, eating utensils, towels, or bedding with other people or pets in your home. After using these items, they should be washed thoroughly with soap and water. Clean all high-touch surfaces everyday High touch surfaces include counters, tabletops, doorknobs, bathroom fixtures, toilets, phones, keyboards, tablets, and bedside tables. Also, clean any surfaces that may have blood, stool, or body fluids on them. Use a household cleaning spray or wipe, according to the label instructions. Labels contain instructions for safe and effective use of the cleaning product including precautions you should take when applying the product, such as wearing gloves and making sure you have good ventilation during use of the product. Monitor your symptoms Seek prompt medical attention if your illness is worsening (e.g., difficulty breathing).Beforeseeking care, call your healthcare provider and tell them that you have, or are being evaluated for, COVID-19. Put on a face mask before you enter the facility. These steps will help the healthcare providers office to keep other people in the office or waiting room from getting infected or exposed. Ask your healthcare provider to call the local or state health department. Persons who are placed under active monitoring or facilitated self- monitoring should follow instructions provided by their local health department or occupational health professionals, as appropriate. When working with your local health department check their available hours. If you have a medical emergency and need to call 911, notify the dispatch personnel that you have, or are being evaluated for COVID-19. If possible, put on a face mask before emergency medical services arrive. Discontinuing home isolation Patients with confirmed COVID-19 should remain under home isolation precautions until the risk of secondary transmission to others is thought to be low. The decision to discontinue home isolation precautions should be made on a [id number] basis, in consultation with healthcare providers and state and local health departments. Pending Studies at Discharge: No Stand-Alone Forms: [facility], Smoking Cessation Medications and DC Order Prescriptions: Continued losartan 50 mg tablet 50 mg PO DAILY RF: 0 thyroid (pork) [[place] Thyroid] 90 mg tablet 90 mg PO DAILY RF: 0 Discharge Orders: Discharge Order (Routine); Ordered 02/24/21 Ordered By: Janine Junior Admission Data Admit Date/Time: 02/22/21 14:37 Attending Provider: Janine Junior I. Admit Provider: Janine Junior I. Primary Care Provider: PCP,NO Other Providers: Janine Junior I. Other Interventions: Discharge Summary Assessment (RN) Last Done: 02/24/21 13:19
== END 2021-02-24 14:18 | disposition home or self-care (01) | DRG 177 ==
LOC: ED 10:12 → EDINP 10:12 → 2E 02-23 02:30
DX: I71.2 Thoracic aortic aneurysm, without rupture; Z79.899 Other long term (current) drug therapy; Z79.890 Hormone replacement therapy; Z87.891 Personal history of nicotine dependence; J12.82 Pneumonia due to coronavirus disease 2019; E03.9 Hypothyroidism, unspecified; E87.6 Hypokalemia; U07.1 COVID-19; R77.8 Other specified abnormalities of plasma proteins; Z82.49 Family history of ischemic heart disease and other diseases of the circulatory system; I10 Essential (primary) hypertension